=== PATIENT | female | born 1960 | race Caucasian/White ===

== ENCOUNTER 2017-03-05 13:18 | Emergency (ER) | payer SELFPAY ==
[~2017-03-05] VITALS: Ht 162.6 cm; Wt 110.0 kg
[2017-03-05 13:51] VITALS: Ht 162.6 cm; Wt 110.0 kg
== END 2017-03-05 18:45 | disposition left against medical advice (07) ==
LOC: E/R 13:18
DX: Z53.21 Procedure and treatment not carried out due to patient leaving prior to being seen by health care provider (principal)